=== PATIENT | female | born 2005 | race Caucasian/White ===

== ENCOUNTER 2023-06-24 13:38 | Outpatient (CLI) | payer BC, SELFPAY | END 2023-06-24 13:39 | disposition home or self-care (01) | LOC: RAD 13:40 | PROVIDERS: PCP Family Medicine; Visit Provider Family Medicine | DX: R01.1 Cardiac murmur, unspecified (principal) | CPT/HCPCS: 93306 ==

== ENCOUNTER 2024-11-27 11:02 | Outpatient (CLI) | payer BC, SELFPAY | END 2024-11-27 11:03 | disposition home or self-care (01) | PROVIDERS: PCP Family Medicine; Visit Provider Family Medicine | DX: Z00.01 Encounter for general adult medical examination with abnormal findings (principal); F41.1 Generalized anxiety disorder; R63.5 Abnormal weight gain; Z13.6 Encounter for screening for cardiovascular disorders; Z11.3 Encounter for screening for infections with a predominantly sexual mode of transmission; Z11.4 Encounter for screening for human immunodeficiency virus [HIV] | CPT/HCPCS: 80053; 80061; 84443; 86592; 86703 ==